=== PATIENT | female | born 1965 | race Caucasian/White ===

== ENCOUNTER → 2016-10-30 | Outpatient (CLI) | payer OTHER | LOC: US 10-22 10:00 | DX: K76.0 Fatty (change of) liver, not elsewhere classified (principal); R10.11 Right upper quadrant pain; K59.09 Other constipation; Z90.49 Acquired absence of other specified parts of digestive tract | CPT/HCPCS: 36415; 76705; 80076 ==

== ENCOUNTER → 2021-07-03 | Outpatient (CLI) | payer OTHER ==
[~2021-07-03] MED LIST: CRESTOR10 MG PO; IBUPROFEN600 MG PO; KLONOPIN1 MG PO; MACROBID 100 M100 MG PO; PRINIVIL10 MG PO; PROTONIX40 MG PO
== END ==
LOC: KOH-I 08:15
DX: M79.605 Pain in left leg (principal); I73.9 Peripheral vascular disease, unspecified; M17.12 Unilateral primary osteoarthritis, left knee
CPT/HCPCS: 73562; 93971